=== PATIENT | female | born 1945 | race Caucasian/White ===

== ENCOUNTER 2017-01-28 06:22 | Day surgery (SDC) | payer MEDICARE ==
[~2017-01-28] VITALS: Ht 167.6 cm; Wt 72.2 kg
[2017-01-28] VITALS (8 sets, daily range): BP systolic 100–112; BP diastolic 55–73; PULSE 60–77; RESP 16–18; TEMP 97.8–98.3; O2SAT 97–100
[~2017-01-28 06:22] MED LIST: DIGO0.12 PO; LISI-360 PO; SYNT100T PO; TOPR200T PO; WARF5TAB PO
[2017-01-28] MEDS ORDERED: HEPARIN-NS/PF INJ 500 ML ONE ×4 (06:58→06:59)
[2017-01-28] MEDS ORDERED: LORazepam 1 MG TAB SL SCH (07:00)
[2017-01-28] MEDS ORDERED: SODIUM CHLORID 0.9% 500 ML IV PRN (07:00)
[2017-01-28] MEDS ORDERED: SODIUM CHLORID 0.9% 500 ML INJ 500 ML IV SCH (07:00)
[2017-01-28] MEDS ORDERED: CHLORHEXIDINE GLUCONATE 2 % 1 PACK (2 CLOTHS) TOPICAL PRN (07:00)
[2017-01-28] MEDS ORDERED: METOPROLOL TARTRATE 25 MG TAB PO PRN (07:00)
[2017-01-28] MEDS ORDERED: LACTATED RINGER'S 1000 ML IV PRN (07:00)
[2017-01-28] MEDS ORDERED: POVIDONE IODINE 5% (ANTISEPSIS KIT) 4 APPLICATIONS EACH NARE PRN (07:00)
[2017-01-28] MEDS ORDERED: APIX5TAB PO (07:15)
[2017-01-28] MEDS ORDERED: DILT120C9 PO (07:15)
[2017-01-28] MEDS ORDERED: METO-426 PO (07:15)
[2017-01-28] MEDS ORDERED: AMIO200T PO (07:15)
[2017-01-28] MEDS ORDERED: LISI-519 PO (07:15)
[2017-01-28] MEDS ORDERED: LEVO100T5 PO (07:15)
[2017-01-28 07:24] LABS: AUTOMATED NEUTROPHIL # 5.7 TH/MM3 (1.8-7.7); BASOPHIL # 0.1 TH/MM3 (0-0.2); BASOPHIL % 1.4 % (0.0-2.0); EOSINOPHIL # 0.3 TH/MM3 (0-0.4); EOSINOPHIL % 3.3 % (0.0-4.0); HEMATOCRIT 35.6 % (35.0-46.0); HEMO FLAGS DIFF FINAL; LYMPH % 28.7 % (9.0-44.0); LYMPHOCYTE # 2.8 TH/MM3 (1.0-4.8); MEAN CELL VOLUME 95.8 FL (80.0-100.0); MEAN CORPUSCULAR HEMOGLOBIN 31.6 PG (27.0-34.0); MONO % 7.7 % (0.0-8.0); NEUT % 58.9 % (16.0-70.0); PLATELET COUNT 235 TH/MM3 (150-450); RED BLOOD COUNT 3.71 MIL/MM3 (4.00-5.30); WHITE BLOOD COUNT 9.7 TH/MM3 (4.0-11.0)
[2017-01-28] MEDS ORDERED: ISOPROTERENOL HCL 1 MG/5 ML AMP ONE (07:28)
[2017-01-28] MEDS ORDERED: HEPARIN-D5W 25,000 U/250 ML 250 ML ONE (07:28)
[2017-01-28 07:29] LABS: APTT (PATIENT) 23.1 SEC (24.3-30.1); PROTHROMBIN TIME - PATIENT 10.3 SEC (9.8-11.6)
[2017-01-28] MEDS ORDERED: HEPARIN SODIUM - IV 10,000 UNITS/10 ML VIAL ONE (07:29)
[2017-01-28] MEDS ORDERED: PROTAMINE SULFATE 50 MG/5 ML VIAL ONE (07:29)
[2017-01-28] MEDS ORDERED: SODIUM CHLOR 0.9% 250 ML INJ 250 ML ONE (07:29)
[2017-01-28] MEDS ORDERED: LEVOFLOXACIN 500 MG PREMIX INJ 100 ML IV ONE ×2 (07:30→07:38)
[2017-01-28 07:41] LABS: POTASSIUM 3.9 MEQ/L (3.5-5.1)
[2017-01-28] MEDS ORDERED: HEPARIN-NS/PF INJ 2,000 ML ONE (07:49)
--- NOTE | 2017-01-28 10:13 | CATHPROC ---
[employer] HIS Report Study Information Study Number Admission Scheduled Start Study Start [id number] Jan 28 2017 6:22AM 01/28/2017 Jan 28 2017 7:25AM [place] [facility] Electrophysiology Study Admit Source Facility Department Other [facility] - Chief Security And Safety Officer Physician and Clinical Staff Initial Bro Lazaro Vegetable Thinner Corey Amaral,RT(R) Vegetable Thinner Kiya Malik,SLIPMAN Other Anesthesia, CHARHOUSE WORKER Recorder July Vargas,STONE Recorder Sara Lentz RN Scrub Alba Soriano,SLIPMAN TECH2 Procedures Performed Procedure Location (Site) Vessel Name Ablation Procedure Cardioversion ICE CATHETER INSERT RA Atruim RF Ablation LT. ATRIUM LT. ATRIUM Equipment Time Printed Circuit Board Panels Deburrer Description Size Mfg Part Number Used/Scraped NEEDLE, TRANSSEPTAL NRG 98 [id number] 07:55 MANNING Munax Used C1 *[id number] BIOSENSE STRAUSS CATHETER, CELSIUS [id number] 08:12 FR 7 Used INC. THERMOCOOL B *[id number] BIOSENSE STRAUSS [id number] 08:07 SET, TUBING COOLFLOW * Used INC. *[id number] [employer]/ EP [id number] 07:55 KIT, TRANSDUCER / AFIB Used PACER *[id number] CATHETER, TACTICATH ABLAT BUNDLE 07:55 BUNDLE-[facility] Used 65 BUNDLE *[id number]- BUNDLE [id number] CATHETER, FR7 OPTIMA SPIRAL 07:55 BUNDLE-[facility] FR7 *[id number]- Used BUNDLE BUNDLE [id number] 09:07 BUNDLE-[facility] CATHETER, JSN, QUAD BUNDLE FR 5 *[id number]- Used BUNDLE [id number] 07:55 BUNDLE-[employer]LL CATHETER, JSN, QUAD BUNDLE FR 5 *[id number]- Used BUNDLE [id number] 07:55 BUNDLE-[employer]LL CATHETER, JSN, QUAD BUNDLE FR 5 *[id number]- Used BUNDLE [id number] SET, COOL POINT TUBING 07:55 BUNDLE-[facility]LL *[id number]- Used BUNDLE BUNDLE SHEATH, FR8.5 STEERABLE SM 07:55 BUNDLE-[facility] D[facility]LL 71CM [id number] Used 71CM BUNDLE COVER, TRANSDUCER CABLE 612-113 07:55 [employer] Used ACUNAV *[id number] 07:55 CORDIS/PACER SHEATH, FR10 VESTA 11CM FR 10 Used *[id number] 07:55 CORDIS/PACER SHEATH, FR9 VESTA 11CM FR 9 [id number] Used [id number] 07:55 MEDLINE INDUSTRIES PACK, CCL CUSTOM * Used *[id number] 07:55 MEDLINE PACER PIRES, LIMB * 2530 *[id number] Used [id number] 07:55 Seen MEDICAL SHEATH, FR4.5 PRELUDE 11CM FR 4.5 Used [id number] 07:55 NAMIC TUBING, HIGH PRESSURE 48" 48" Used *[id number] 07:55 NAMIC TUBING, HIGH PRESSURE 48" 48" Used *[id number] 07:55 NDIAYE MEDICAL BLANKET,WARM AIR CCL * Used *[id number] 07:55 [facility] MEDICAL ELECTRODE KIT, BENEDICTO X SURFACE * Used *[id number] 662877 07:55 [facility] MEDICAL SHEATH, EPS, FR6 FAST CATH FR 6 Used *9894088 07:55 [facility] MEDICAL SHEATH, EPS, FR7 FAST CATH FR 7 [id number] Used [id number] 07:55 [facility] MEDICAL SHEATH, EPS, FR8 FAST CATH FR 8 Used *[id number] CATHETER, ACUNAV FR10 ICE [id number] 08:52 ELIZABETH FR 10 Used (ELIZABETH) *[id number] [facility] PAD, ELECTROSURGICAL 07:55 * [id number] *[id number] Used SURGICAL GROUNDING (BLUE) History: Allergies Allergy Reaction latex REDNESS AND BURNING History: Risk Factors Hypertension Yes Labs Hgb (g/dl) Hct (%) RBC (MIL/MM3) WBC (l/cumm) Platelets (thousands) 11.60-17.00 35.00-51.00 4.00-5.90 4.00-11.00 150.00-450.00 11.7 35.6 3.7 9.7 235 Glucose (mg/dl) BUN (mg/dl) Creatinine (mg/dl) BUN:Creatinine (1:x) 74.00-106.00 7.00-18.00 0.50-1.30 10.00-20.00 91 13 1.3 10 Na (meq/l) K (meq/l) 136.00-145.00 3.50-5.10 141 3.9 INR (PTT:PT) 0.90-1.10 1 Medication Medication Total Dose (Bolus/Oral) Medication Total Dosage/Unit 1% XYLOCAINE 40 mL HEPARIN 8000 units PROTAMINE 50 mg Medications (Bolus/Oral) Medication Time Given Dosage/Unit Administered By Reason 1% XYLOCAINE 01/28/2017 8:39:28 AM 20 mL Bro Cam 20 mL 1% XYLOCAINE given in lab by Bro Cam in Left Groin via Subcutaneous. 1% XYLOCAINE 01/28/2017 8:44:23 AM 20 mL Bro Cam 20 mL 1% XYLOCAINE given in lab by Bro Cam in Right Groin via Subcutaneous. Ordered by Trey Cam. HEPARIN 01/28/2017 8:53:23 AM 5000 units Anesthesia, CHARHOUSE WORKER As per physicians v erbal order 5000 units HEPARIN given in lab by Anesthesia, CHARHOUSE WORKER via Peripheral IV. Ordered by Bro Cam. Reas on: As per physicians verbal order. HEPARIN 01/28/2017 9:11:28 AM 3000 units Anesthesia, CHARHOUSE WORKER As per physicians v erbal order 3000 units HEPARIN given in lab by Anesthesia, CHARHOUSE WORKER via Peripheral IV. Ordered by Bro Cam. Reas on: As per physicians verbal order. PROTAMINE 01/28/2017 9:52:56 AM 40 mg Anesthesia, CHARHOUSE WORKER As per physicians xuan bal order 40 mg PROTAMINE given in lab by Anesthesia, CHARHOUSE WORKER via Peripheral IV. Ordered by Bro Cam. Reason: As per physicians verbal order. 01/28/2017 10:10:10 PROTAMINE 10 mg Anesthesia, CHARHOUSE WORKER As per physicians verbal order AM 10 mg PROTAMINE given in lab by Anesthesia, CHARHOUSE WORKER via Peripheral IV. Ordered by Bro Cam. Reason: As per physicians verbal order. Medication (Drip) Medication Time Given Dosage/Unit Concentration/Unit Diluent (ml) Solution HEPARIN DRIP 01/28/2017 9:15:22 AM 1000 units/hr 63032 units 250 D5W 1000 units/hr HEPARIN DRIP given in lab by Anesthesia, CHARHOUSE WORKER via Peripheral IV. Pump/Drip Flow = 10 ml /hr using D5[place] [address] units in 250 ml. Ordered by Bro Cam. Reason: As per physicians verbal order. LEVAQUIN 01/28/2017 7:46:22 AM 100 mL/hr 500 100 NaCl .9 100 mL/hr LEVAQUIN given by Sara Lentz, STONE in Left Forearm via Peripheral IV. Pump/Drip Flow = 0 ml/hr using NaCl .9 with a concentration of 500 in 100 ml. Ordered by Bro Cam. Reason: As per physicians verbal order. Initial Case Assessment Cardiovascular HR Rhythm NIBP Chest Pain 83 af 113/82 0 Edema Present Skin color Skin None Normal Warm Dry Circulatory - Right Pulses Dorsalis Pedis 1 Scale (0,1,2,3,4,d) Circulatory - Left Pulses Dorsalis Pedis 1 Scale (0,1,2,3,4,d) Circulatory - Lower Extremities Color Lower Right Color Lower Left Normal Normal Neurological State Oriented to time-place- Alert Moves all extremities person Respiration - General Respiration Rate SpO2 (%) (B/min) 20 92 Final Case Assessment Cardiovascular HR Rhythm NIBP Chest Pain 64 sr 105/73 0 Edema Present Skin color Skin None Normal Warm Dry Circulatory - Right Pulses Dorsalis Pedis 3 Scale (0,1,2,3,4,d) Circulatory - Left Pulses Dorsalis Pedis 3 Scale (0,1,2,3,4,d) Circulatory - Lower Extremities Color Lower Right Color Lower Left Normal Normal Neurological State Oriented to time-place- Alert Moves all extremities person Respiration - General Respiration Rate SpO2 (%) O2 (lpm) (B/min) 14 100 4 Chronological Log Time Study Chronological Log 7:34:49 Patient arrived via Bed. 7:34:50 Patient Name, D.O.B, / Armband Verified By R.N. 7:34:51 Consent signed by the physician and the patient and verified by the Chief Security And Safety Officer staff. 7:34:52 Pre-op and post- op instructions given; patient acknowledges understanding of instructions. 7:34:53 Verbal Stimulation=2 Physical Stimulation=2 Airway=2 Respiration=2 TOTAL=8. (0=absent, 1=li mited, 2=present) 7:34:53 Anesthesia at bedside. Assumes care of patient. 7:36:07 Patient has been NPO for More than 6Hrs. 7:36:08 Skin Breakdown- healing incision noted to left upper chest and arrived open to air. 7:36:09 Patient Warmer Placed on the Table. 7:36:09 Disposable Defibrillator Pads Placed On Patient. 7:36:11 Brda Prominences Protected 7:36:12 A # 22 IV was noted in the Forearm (left). Grade = 0. 0.9%nacl at kvo. 7:36:13 A # 20 IV was noted in the Forearm (left). Grade = 0. 0.9%nacl at kvo. 7:36:14 History and physical on the chart. 100 mL/hr LEVAQUIN given by Sara Lentz RN in Left Forearm via Peripheral IV. Pump/Drip Ismael w = 0 ml/hr using 7:46:22 NaCl .9 with a concentration of 500 in 100 ml. Ordered by Bro Cam. Reason: As per physicia ns verbal order. Assessment: Initial Case, HR=83 BPM, Rhythm=af, PGOA=014/82 mmhg, Chest Pain=0, Edema=None, [place] r=Normal, Skin = Warm, Dry Right Pulses: Archie Ped=1 Left Pulses: Archei Ped=1 7:46:39 Lower Right Extremities: Color=Normal Lower Left Extremities: Color=Normal Neurological: State=Alert, Ox3, MIGUEL Respiration: Resp=20 B/min, SpO2=92 % 7:55:43 Table restraints applied according to hospital policy 8:02:36 Bilateral groins prepped with 2% chlorhexidine, and draped after a 3 minute waiting time. 8:04:23 Reference ECG taken 8:09:23 AICD turned off by [facility] rep per MD order. 8:17:[address] Chi at bedside for intubation. 8:30:00 MD arrived. Time Out. Correct patient, procedure, procedure equipment, site and side verified with physician present. Time 8:36:00 concurred by MD, individual staff and CHARHOUSE WORKER. Time Out #2 - Consents verified, patient in correct position, all results are labled and display ed, safety precautions 8:36:20 taken, antibiotics administered. Time out concurred by MD, individual staff and CHARHOUSE WORKER in procedur e 8:36:46 Case Start 8:36:50 Vineet in progress. 8:38:44 Vineet complete. 8:39:28 20 mL 1% XYLOCAINE given in lab by Bro Cam in Left Groin via Subcutaneous. 8:40:23 Vascular access was obtained in the Fem Vein (left). 8:40:24 Vascular access was obtained in the Fem Vein (left). 8:40:28 Vascular access was obtained in the Fem Vein (left). 8:40:32 Vascular access was obtained in the Fem Art (left). A SHEATH, FR4.5 PRELUDE 11CM FR 4.5 was advanced into the Fem Art (left) using the Modified Seld daniel technique. 8:40:44 0.9 ns pressure bag connected. 8:41:09 A SHEATH, EPS, FR6 FAST CATH FR 6 was advanced into the Fem Vein (left) using the Modified S eldinger technique. 8:41:23 A SHEATH, EPS, FR7 FAST CATH FR 7 was advanced into the Fem Vein (left) using the Modified S eldinger technique. 8:41:33 A SHEATH, FR10 VESTA 11CM FR 10 was advanced into the Fem Vein (left) using the Modified Se jack technique. 8:44:23 20 mL 1% XYLOCAINE given in lab by Bro Cam in Right Groin via Subcutaneous. Ordered by Bro Cam. 8:45:11 Vascular access was obtained in the Fem Vein (right). 8:46:33 A SHEATH, EPS, FR8 FAST CATH FR 8 was advanced into the Fem Vein (right) using the Modified Seldinger technique. A CATHETER, JSN, QUAD BUNDLE FR 5 was advanced vis Fem Vein (left) and placed in the CS. Placeme nt was visually 8:47:20 confirmed under fluoroscopy. A CATHETER, JSN, QUAD BUNDLE FR 5 was advanced vis Fem Vein (left) and placed in the HIS. Placem ent was 8:47:36 visually confirmed under fluoroscopy. 8:49:28 CATHETER, ACUNAV FR10 ICE (ELIZABETH) FR 10 Was Postioned. A SHEATH, FR8.5 STEERABLE SM 71CM BUNDLE 71CM was exchanged in the Fem Vein (right). This was ne cessary in 8:51:10 order for catheter support. 8:52:39 Francisco Javier in 8fr steerable sheath right femoral vein. 5000 units HEPARIN given in lab by Anesthesia, CHARHOUSE WORKER via Peripheral IV. Ordered by Bro Cam. Reason: As per 8:53:23 physicians verbal order. A CATHETER, FR7 OPTIMA SPIRAL BUNDLE FR7 was advanced to the right atrium and passed through the septal wall 8:55:08 to the left atrium. 9:03:21 An EPS was advanced to the right atrium and passed through the septal wall to the left atriu m. Francisco Javier needle out. 9:04:03 Activated Clotting Time Drawn A CATHETER, FR7 OPTIMA SPIRAL BUNDLE FR7 was advanced to the right atrium and passed through th e septal wall 9:04:16 to the left atrium. A SECOND CATHETER, JSN, QUAD BUNDLE FR 5 was advanced viA Fem Vein (left) and placed in the CS AFTER FIRST 9:06:45 QUAD REMOVED. Placement was visually confirmed under fluoroscopy. 9:09:06 Mapping in progress. 9:11:06 ACT (Normal Range 90-180) = 306 3000 units HEPARIN given in lab by Anesthesia, CHARHOUSE WORKER via Peripheral IV. Ordered by Bro Cam . Reason: As per :11:28 physicians verbal order. 9:15:10 Mapping complete. [place] catheter removed. 1000 units/hr HEPARIN DRIP given in lab by Anesthesia, CHARHOUSE WORKER via Peripheral IV. Pump/Drip Flow = 10 ml/hr using :15:22 [place] [address] units in 250 ml. Ordered by Bro Cam. Reason: As per ruba valente verbal order. A CATHETER, TACTICATH ABLAT 65 BUNDLE was advanced vis Fem Vein (right) and placed in the LA. P lacement was 9:15:55 visually confirmed under fluoroscopy. 9:16:55 Activated Clotting Time Drawn 9:17:30 RF Ablation of the LT. ATRIUM with a CATHETER, TACTICATH ABLAT 65 BUNDLE. 9:24:41 ACT (Normal Range 90-180) = 356 9:27:39 Ablation remains in progress. 9:38:28 ECG rhythm of AF noted. Patient cardioverted at 200 joules. Success synch 9:42:00 All Catheter(s) removed without difficulty 9:42:22 [facility] rep reenabled AICD per Dr Cam A SHEATH, FR9 VESTA 11CM FR 9 was exchanged in the Fem Vein (right). This was necessary in ord er to minimize 9:43:16 site leakage. 9:44:13 Sheath(s) left in place, secured, 0.9ns kvo connected and will be removed in Holding Area 9:51:08 Sterile dressing applied to sites 9:51:38 PACU called. Spoke to Margie 9:51:51 Bedside Report will be given. 40 mg PROTAMINE given in lab by Anesthesia, CHARHOUSE WORKER via Peripheral IV. Ordered by Bro Cam. R jacobo: As per 9:52:56 physicians verbal order. Assessment: Final Case, HR=64 BPM, Rhythm=sr, YCDY=628/73 mmhg, Chest Pain=0, Edema=None, Color =Normal, Skin = Warm, Dry Right Pulses: Archie Ped=3 Left Pulses: Archie Ped=3 9:54:17 Lower Right Extremities: Color=Normal Lower Left Extremities: Color=Normal Neurological: State=Alert, Ox3, MIGUEL Respiration: Resp=14 B/min, FwR8=075 %, O2=4 lpm 9:55:01 Case End 9:55:03 No case complications noted. 9:55:04 Cine recording checked. 9:55:29 Defibrillator and ground pads removed. Skin intact. 9:58:38 Activated Clotting Time Drawn 10:04:55 Activated Clotting Time Redrawn 10:08:00 [facility] Ablation procedure performed: AFIB. 10:09:50 EP Procedure was performed. 10:10:00 ACT (Normal Range 90-180) = 211 10 mg PROTAMINE given in lab by Anesthesia, CHARHOUSE WORKER via Peripheral IV. Ordered by Bro Cam. Reason: As per 10:10:10 physicians verbal order. 10:11:50 Activated Clotting Time to be drawn in pacu prior to sheath pull End Study - Contrast Media Used In Study Contrast Total Opened (mL) Total Used (mL) Total Wasted (mL) Unspecified 0 0 0 End Study - Maximum Contrast Load Max Contrast Load (mL) 271.2 End Study - Radiation Exposure Fluoro Time (minutes) 8.7 End Study - Patient Disposition Complications Transferred To Interventional Outcome No Telemetry Bed successful
[2017-01-28] MEDS ORDERED: ONDANSETRON HCL 4 MG/2 ML VIAL IV PUSH PRN (10:15)
[2017-01-28] MEDS ORDERED: ATROPINE SULFATE 1 MG/ML VIAL IV PUSH PRN (10:15)
[2017-01-28] MEDS ORDERED: BACITRACIN OINT 0.9 GM PKT TOP ONE (10:15)
[2017-01-28] MEDS ORDERED: oxyCODONE/ACETAMINOPHEN 5 MG/325 MG TAB PO PRN ×2 (10:15)
[2017-01-28] MEDS ORDERED: SODIUM CHLOR 0.9% 250 ML INJ 250 ML IV PRN (10:15)
[2017-01-28] MEDS ORDERED: LIDOCAINE HCL 1% 50 ML VIAL INFIL PRN (10:15)
[2017-01-28] MEDS ORDERED: LORazepam 2 MG/ML VIAL IV PUSH PRN (10:15)
[2017-01-28] MEDS ORDERED: DO NOT ADM ANY ANTICOAGULANT DRUGS PRN (10:24)
--- NOTE | 2017-01-28 11:27 | MA ---
cc: CHUY CAM M.D. DATE 01/28/2017 PROCEDURE PERFORMED Electrophysiology study, CS cannulation, transeptal approach, right and left heart catheterization, intracardiac echo, radiofrequency ablation of atrial fibrillation, pulmonary vein isolation, posterior ablation, floor line creation, mitral valve isolation and cardioversion. That was a very complex case. Transeptal was very difficult. INDICATIONS FOR PROCEDURE Mrs. Haque is a 71-year-old female with a history of atrial fibrillation, congestive heart failure, previous defibrillator implanted. The patient had around seven shocks due to atrial fibrillation with some ventricular response despite she was on multiple medications like amiodarone. She was admitted for electrophysiology study and ablation. The risks, the nature and the benefit of the procedure are clearly stated to her. The risks include pneumothorax, cardiac perforation, stroke and even . The patient understood and agreed to proceed. PROCEDURE As written informed consent was obtained prior to electrophysiology study, the patient was kept on the table where she was prepped and draped in the usual sterile fashion. Conscious sedation was initiated and maintained throughout the procedure by the anesthesiologist. Once sedation was verified, the right and left inguinal area was anesthetized with 2% Xylocaine. Using modified Seldinger technique, the right femoral vein was cannulated on one occasion; one guidewire was advanced over the wire, an 8-Greek Hemaquet were advanced. Then the left femoral vein was cannulated on three occasions and three guidewires were advanced over the wire, a 6, a 7 and a 10-Greek Hemaquet were advanced. Then the left femoral artery was cannulated on one occasion. One guidewire was advanced. Over the wire a 4-Greek Hemaquet was advanced. Then under fluoroscopic guidance through the 6-Greek and 7-Greek Hemaquets, two 5-Greek Ema curved quadripolar electrophysiology catheters were advanced and placed along the His as well as the coronary sinus. The patient was in atrial fibrillation. There was very little signal from the left atrium. Then through the 10-Greek Hemaquet, a Cordis-Flannery AcuNav intracardiac echo catheter was advanced and placed at the right atrium. Multiple views were obtained. There was no pericardial effusion. There is severe right and left atrial enlargement. Atrial septum was seen. Aortic root was visualized. Then the 8-Greek Hemaquet in the right femoral vein was exchanged for an Agilis transseptal sheath that was placed all the way to the superior vena cava. Through the sheath a [place] needle was advanced. After multiple attempts, foci was engaged. RF was delivered for 2-seconds. I was able to cross into the left atrium. Once the needle crossed, the dilator was advanced. Once the dilator and the sheath crossed, the needle and the dilator were removed. Intracardiac echo showed sheath in good position. The patient already received 10,000 units of heparin. The goal is to keep an ACT around 350 during the ablation. Then through the sheath a [facility] [facility]rell 20 pole circumferential catheter was advanced. Using OxiCool endocardial solution mapping system a three-dimensional configuration of the left atrium was obtained. Points were taken at the superior and inferior vein, right superior and inferior vein, mitral valve and appendage. There was no significant signal into the veins and there was some seen in the posterior wall and floor as well as mitral valve. The left atrium was very severely enlarged. Then the scope was replaced by B-curve 3/5-mm irrigated tip mapping and radiofrequency ablation catheter from Cordis-Flannery. First I did isolate the posterior wall. The floor line was created. Mitral line was isolated. Then I did isolate the left superior and inferior vein. Then I did ablate around the right superior and inferior vein. At that point, mapping of the atrium. There was no significant signal. I decided to proceed with cardioversion. A 200 sync biphasic joule was delivered that converted the patient into sinus rhythm. At that point the patient was observed. I did not use Isuprel. The would not make any difference. All catheters and Hematocrits were removed. Intracardiac echo showed no pericardial effusion. The transeptal sheath was replaced by a 9-Greek Hemaquet. This was a very difficult and complex case. Blood loss minimal. 1. ELECTROCARDIOGRAM: At baseline the patient was in atrial fibrillation. Postprocedure the patient was in sinus rhythm. 2. BASIC INTERVAL: The base cycle length was around 800 milliseconds. Post ablation the patient was in sinus rhythm with basic interval around 1000 milliseconds. AH was at 110 and HV was around 70 milliseconds. 3. ATRIAL PACING PROTOCOL: There was no conduction by pacing from the veins. 4. TACHYARRHYTHMIA: Atrial fibrillation was mapped and ablated. Ablation was successful. CONCLUSIONS Successful electrophysiology study, mapping and radiofrequency ablation of atrial fibrillation, posterior ablation, mitral valve isolation, floor line creation, single chamber defibrillator reprogramming. COMMENT AND RECOMMENDATIONS This is a very enlarged left atrium. The patient less likely will stay in sinus rhythm. The patient is on multiple antiarrhythmics. If heart rate cannot be controlled in the future and the patient receives recurrent defibrillatory shocks due to atrial fibrillation again, the best approach will be AV node ablation and BiV pacing. The case will be discussed with the patient. Chuy Cam MD HS/SSB /9:54 AM /11:06 AM
--- NOTE | 2017-01-28 12:50 | EKG ---
Date Performed: 01/28/2017 Time Performed: 07:21:40 PTAGE: 71 years EKG: Atrial fibrillation with frequent multifocal PVCs or aberrant ventricular conduction. Leftw dudley axis Possible anterior infarct - age undetermined Lateral ST-T changes are nonspecific Abnormal E CG PREVIOUS TRACING : 05/30/2010 15.54 Since previous tracing, no significant change noted DOCTOR: Srinath Morris Interpretating Date/Time 01/28/2017 12:49:21
--- NOTE | 2017-01-28 13:08 | EKG ---
Date Performed: 01/28/2017 Time Performed: 10:42:20 PTAGE: 71 years EKG: SINUS BRADYCARDIA WITH OCCASIONAL SUPRAVENTRICULAR PREMATURE COMPLEXES POSSIBLE ANTERIOR MY OCARDIAL INFARCTION , OF INDETERMINATE AGE ABNORMAL ECG I cannot accurately compare rhythms as prior EKG has baseline artifact. PREVIOUS TRACING : 01/28/2017 07.21 DOCTOR: Chandler Choi Interpretating Date/Time 01/28/2017 13:06:48
[2017-01-28] MEDS: DILTIAZEM 120 MG PO SCH (21:00)
[2017-01-28] MEDS: AMIODARONE 200 MG TAB PO SCH (21:40)
[2017-01-28] MEDS: APIXABAN 5 MG TABLET PO SCH (21:40)
[2017-01-28] MEDS: METOPROLOL TARTRATE 25 MG TAB PO SCH (21:45)
[2017-01-29] VITALS (11 sets, daily range): BP systolic 100–111; BP diastolic 52–68; PULSE 56–72; RESP 19–20; TEMP 98.2–98.3; O2SAT 97–98
[2017-01-29] MEDS ORDERED: LEVOTHYROXINE SODIUM 100 MCG TAB PO SCH (06:00)
[2017-01-29 06:52] LABS: APTT (PATIENT) 23.7 SEC (24.3-30.1); PROTHROMBIN TIME - PATIENT 10.6 SEC (9.8-11.6)
--- NOTE | 2017-01-29 07:08 | EKG ---
Date Performed: 01/29/2017 Time Performed: 04:44:18 PTAGE: 71 years EKG: Sinus rhythm Prolonged QT interval Possible anterior infarct - age undetermined Abnormal ECG No significant basurto e from prior electrocardiogram. PREVIOUS TRACING : 01/28/2017 10.42 DOCTOR: Chandler Choi Interpretating Date/Time 01/29/2017 07:08:23
--- NOTE | 2017-01-29 08:19 | HHI.PR ---
Subjective Remarks Feeling ok Objective Vital Signs Date Time Temp Pulse Resp B/P (MAP) Pulse Ox O2 Delivery O2 Flow Rate FiO2 01/29/17 07:54 98.3 59 19 111/68 (82) 98 01/29/17 07:00 61 01/29/17 06:00 58 01/29/17 05:00 60 01/29/17 04:00 60 01/29/17 03:00 98.2 60 20 100/52 (68) 97 01/29/17 02:00 59 01/29/17 01:00 60 01/29/17 00:00 59 01/29/17 00:00 72 01/28/17 23:00 98.1 60 18 100/55 (70) 97 01/28/17 22:00 64 01/28/17 21:00 60 01/28/17 20:00 63 01/28/17 19:00 97.8 62 18 107/59 (75) 100 01/28/17 15:40 98.3 63 17 102/64 (77) 97 01/28/17 13:35 98.1 77 16 100/56 (71) 97 01/28/17 13:30 98.0 59 18 101/54 (70) 100 Room Air 01/28/17 13:00 54 18 100/54 (69) 98 Room Air 01/28/17 12:30 56 18 99/58 (72) 98 Room Air 01/28/17 12:00 52 18 96/56 (69) 97 Room Air 01/28/17 11:37 54 18 101/59 (73) 97 Room Air 01/28/17 11:15 53 18 95/60 (72) 97 Room Air 01/28/17 11:00 53 18 102/52 (69) 97 Room Air 01/28/17 10:45 54 18 107/57 (74) 98 Room Air 01/28/17 10:30 54 18 102/52 (69) 100 Room Air 01/28/17 10:18 97.6 57 18 108/56 (73) 100 Room Air I/O 01/28/17 01/28/17 01/28/17 01/29/17 01/29/17 01/29/17 07:00 15:00 23:00 07:00 15:00 23:00 Intake Total 700 ml 450 ml 1540 ml Output Total 250 ml 250 ml 1400 ml Balance 450 ml 200 ml 140 ml Intake Oral 450 ml 1540 ml Other 700 ml Output Urine Total 250 ml 250 ml 1400 ml Result Diagram: 01/28/17 0658 01/28/17 0658 Imaging Alert, fully oriented Lungs: ventilated Heart: s1, S2 regular, no gallop Abdomen: soft, no mass Ext: no edema Current Medications Medications (Trade) Dose Ordered Sig/Ned Route Start Time Stop Time Status Last Admin Lactated Ringer's 1,000 ml @ 30 mls/hr Q24H PRN IV 01/28/17 07:00 01/31/17 06:59 Sodium Chloride 500 ml @ 30 mls/hr [id number] PRN IV 01/28/17 07:00 01/31/17 06:59 (Lopressor) 25 mg [employer] PRN PO 01/28/17 07:00 01/31/17 06:59 (Betadine 5% Antisepsis Kit) 1 applic [employer] PRN EACH NARE 01/28/17 07:00 01/31/17 06:59 (Chlorhexidine 2% Cloth) 3 pack [employer] PRN TOPICAL 01/28/17 07:00 01/31/17 06:59 Sodium Chloride 500 ml @ 30 mls/hr [id number] IV 01/28/17 07:00 (Ativan) 1 mg [employer] SL 01/28/17 07:00 01/31/17 06:59 (Percocet 5-325 Mg) 1 tab Q4H PRN PO 01/28/17 10:15 (Percocet 5-325 Mg) 2 tab Q4H PRN PO 01/28/17 10:15 (Ativan Inj) 0.5 mg UNSCH PRN IV PUSH 01/28/17 10:15 01/29/17 10:14 (Atropine Inj) 0.5 mg UNSCH PRN IV PUSH 01/28/17 10:15 Sodium Chloride 250 ml @ 500 mls/hr ONCE PRN IV 01/28/17 10:15 01/29/17 10:14 (Zofran Inj) 4 mg Q4H PRN IV PUSH 01/28/17 10:15 (Xylocaine 1% Inj (50 ml)) 10 ml UNSCH PRN INFIL 01/28/17 10:15 12/20/17 10:14 (Cordarone) 200 mg BID PO 01/28/17 21:00 01/28/17 21:40 (Eliquis) 5 mg BID PO 01/28/17 21:00 01/28/17 21:40 (Synthroid) 100 mcg DAILY@0600 PO 01/29/17 06:00 01/29/17 05:35 (Prinivil) 5 mg DAILY PO 01/29/17 09:00 (Lopressor) 75 mg BID PO 01/28/17 21:00 01/28/17 21:45 (Cardizem Sr) 120 mg BID PO 01/28/17 21:00 01/28/17 21:00 Miscellaneous Information ALL NURSING DEPARTME... UNSCH PRN .XX 01/28/17 10:24 01/29/17 10:23 Assessment and Plan Problem List: (1) Atrial fibrillation ICD Codes: I48.91 - Unspecified atrial fibrillation Plan: SP afib ablation doing well Case discussed again with her No significant signal in left atrium If there is afib with FVR again then AV node modification will be considered Will be DH Follow up as scheduled (2) CHF (congestive heart failure) ICD Codes: I50.9 - Heart failure, unspecified Plan: Stable On optimal medical management Bro Cam MD Jan 29, 2017 08:19
[2017-01-29] MEDS: METOPROLOL TARTRATE 25 MG TAB PO SCH (08:56)
[2017-01-29] MEDS: AMIODARONE 200 MG TAB PO SCH (08:57)
[2017-01-29] MEDS: DILTIAZEM 120 MG PO SCH (08:57)
[2017-01-29] MEDS: APIXABAN 5 MG TABLET PO SCH (08:57)
[2017-01-29] MEDS ORDERED: LISINOPRIL 5 MG TAB PO SCH (09:00)
== END 2017-01-29 11:32 | disposition home or self-care (01) ==
LOC: HDIC 06:22 → HDOC 06:22 → HCIS 13:37 → HDOC 01-29 11:32
PROVIDERS: ATTEND Internal Medicine Interventional Cardiology
DX: I48.2 Chronic atrial fibrillation (principal); I50.9 Heart failure, unspecified; R94.31 Abnormal electrocardiogram [ECG] [EKG]
CPT/HCPCS: 80048; 85002; 85025; 85347; 85610; 85730; 86850; 86900; 86901; 92960; 93005; 93312; 93320; 93325; 93613; 93656; 93662; C1730; C1731; C1732; C1759; C1766; C2630; J1644; J1956; J2720; J7050